=== PATIENT | male | born 1970 | race Caucasian/White ===

== ENCOUNTER → 2017-03-27 | Outpatient (CLI) | payer OTHER ==
--- NOTE | ~2017-03-27 | CR7 ---
[facility] A Service of [facility] / [facility] RADIOLOGY TEXT RESULTS PATIENT: SABAS BUNN LOCATION: [facility] : 66 UNIT #: [id number] AGE: [address]: Marcellus Cr MD SEX: M ORDER DR: [id number] [facility] [address] [place], [place] [address] [id number] O MR#: [id number] Acc #: [id number] NAME: SABAS BUNN : 1970 SEX: M STUDY DATE/TIME: 03/27/2017 11:47 UNIT: [facility] ROOM: STUDY DESCRIPTION: CR Abdomen Single AP View Attending Physician: Marcellus Cr M.D. Referring Physician: Marcellus Cr M.D. Ordering Physician: Marcellus Cr M.D. Primary Care Physician: Primary Care Physician No MEDICAL IMAGING REPORT This report is preliminary unless electronic signature is present EXAM Abdomen single view INDICTIONS Followup kidney stones. The patient has had right sided flank pain for two months. FINDINGS A supine view of the abdomen was obtained. The bowel gas pattern is normal. The bones are normal. No visible renal calculi are identified. IMPRESSION The study appears normal. I cannot visualize any renal calculi. Dictated by... Juan Jose Scherer M.D. THIS IS AN ELECTRONICALLY VERIFIED REPORT Juan Jose Scherer M.D. at 03/28/2017 3:57 PM SCOTT/hudson TD: 03/28/2017 11:44 JOB #: [id number] MEDICAL IMAGING REPORT Page 1 of 1 COPY
== END | disposition home or self-care (01) ==
LOC: CRAD 11:34
DX: N20.0 Calculus of kidney (principal)
CPT/HCPCS: 74000